=== PATIENT | male | born 1960 | race Caucasian/White ===

== ENCOUNTER 2020-05-16 05:40 | Day surgery (SDC) | payer BC ==
[2020-05-12 13:50] LABS: HEMATOCRIT 45.8 % (42.0-54.0); HEMOGLOBIN 14.8 g/dL (13.5-17.5); MCH 28.2 pg (26.0-34.0); MCHC 32.3 g/dL (31.0-37.0); MCV 87.4 fL (80.0-100.0); MEAN PLATELET VOLUME 9.4 fL (7.4-10.4); RBC 5.24 10x6/uL (4.20-6.10); RDW 13.3 % (11.5-14.5); WBC 6.8 10x3/uL (4.8-10.8)
[~2020-05-16] VITALS: Ht 175.3 cm; Wt 98.9 kg
[~2020-05-16 05:40] MED LIST: ATACAND PO; CILOSTAZOL100 MG PO; PLAVIX75 MG PO; XARELTO20 MG PO
[2020-05-16 06:11] VITALS: Ht 175.3 cm; Wt 98.9 kg
[2020-05-16] MEDS ORDERED: HYDROCODON-ACE1 EA10 PO (09:08)
--- NOTE | 2020-05-16 09:54 | NUR ---
0940 ASSISSTED UP TO BR VOIDS QS. CALLED TO INFORM PT. HAS RETURNED TO ROOM.
--- NOTE | 2020-05-17 12:51 | OP ---
PATIENT NAME: CONSTANTINE HUTSON MEDICAL RECORD: [id number] :64 LOCATION:[facility] ADMISSION DATE: SURGEON: GORDON AQUINO, TINA LOWE DATE OF OPERATION: 05/16/2020 PREOPERATIVE DIAGNOSES: Rotator cuff tear of the right shoulder with SLAP lesion and impingement syndrome, acromioclavicular arthritis. POSTOPERATIVE DIAGNOSES: Rotator cuff tear of the right shoulder with SLAP lesion and impingement syndrome, acromioclavicular arthritis. PROCEDURES: 1. Arthroscopic rotator cuff repair. 2. Arthroscopic SLAP repair, right shoulder. 3. Arthroscopic subacromial decompression, acromioplasty, and bursectomy. 4. Arthroscopic distal clavicle excision done through separate incision - 1 cm. SURGEON: Tina Leyva MD ANESTHESIA: General. INTRAOPERATIVE COMPLICATIONS: None. SUMMARY OF PATHOLOGIC FINDINGS: The patient had a far posterior supraspinatus - infraspinatus junctional tear. The patient also had substantial SLAP lesion. Biceps tendon was overall in good condition after the SLAP was repaired. The biceps tendon was left without tenodesing, rotator cuff was also repaired using Arthrex suture anchors. 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 OPERATIVE SUMMARY IN DETAIL: After obtaining the appropriate preoperative orthopedic surgery consent as well as anesthetic consultation, evaluation and regular, respiration of the operating room and placed in the operating table in supine position. After general laryngeal mask airway was administered, the patient was placed in a left lateral decubitus position. All pressures points were well padded to include down leg peroneal pad as well as axillary roll. The patient was held from the operating room table using the vacuum pack suction system. Right upper extremity and shoulder were prepped and draped in routine sterile fashion. The arm was held in the Arthrex traction device at 30 degrees of forward flexion, 30 degrees of abduction with 10 pounds of traction laterally. At this point, the appropriate timeout was taken and agreed upon by all given the unique patient identifiers. Arthroscopy was established in the glenohumeral joint from a posterior portal. Anterior portal was established in anterior safe interval. Diagnostic arthroscopy did show the patient to have the findings as noted above. Attention was first turned SLAP repair. Two labral anchors were placed in the anterior aspect just anterior to the bicipital labral junction. After preparing the anterior aspect of the glenoid for reapproximation with 2.9 suture anchors from Arthrex using a labral tape. Having completed this, attention was turned to the subacromial space. While in the subacromial space, Dodge tissue ablation system was utilized to denude the undersurface of the acromion of all soft tissue elements and release the coracoacromial ligament. Formal acromioplasty was then performed to the acromioclavicular joint and the acromioclavicular OPERATIVE REPORT [id number] HARESHCONSTANTINE joint was then identified and through separate anterior arthroscopic portal, distal clavicle was excised for 1 cm using the 5-0 barrel bur. Lastly, attention was turned to the rotator cuff. The rotator cuff tear and footprint were debrided of all nonviable-appearing tissue and the footprint was decorticated for reapproximation. A single inverted #2 FiberTape was utilized and anchored laterally with a 5.5 SwiveLock from Arthrex. Having completed this, arthroscopy portals were closed in routine interrupted fashion using 4-0 Prolene. Sterile dressings were applied. The patient was awakened, taken to the recovery room in stable condition. All final needle and sponge counts were correct. TRANSINT:[id number] Voice Confirmation ID: [id number] DOCUMENT ID: [id number] GORDON AQUINO, TNIA LOWE at 1251 CC: [id number] DICTATION DATE: 05/16/20912 GROUT WORKER: 05/16/201948 [facility] 05/16/20 [facility] [address] [place] [address]
== END 2020-05-16 11:00 | disposition home or self-care (01) ==
LOC: D.OPS 05:40 → D.PAN 07:30 → D.OPS 07:30
PROVIDERS: Anesthesiology; ATTEND Orthopaedic Surgery
DX: M75.101 Unspecified rotator cuff tear or rupture of right shoulder, not specified as traumatic (principal); S43.431A Superior glenoid labrum lesion of right shoulder, initial encounter; M75.41 Impingement syndrome of right shoulder; M19.011 Primary osteoarthritis, right shoulder; X58.XXXA Exposure to other specified factors, initial encounter; M25.511 Pain in right shoulder; M75.21 Bicipital tendinitis, right shoulder; I25.10 Atherosclerotic heart disease of native coronary artery without angina pectoris

== ENCOUNTER 2021-02-22 20:50 | Emergency (ER) | payer BC ==
[~2021-02-22] VITALS: Ht 175.3 cm; Wt 95.5 kg
[~2021-02-22 20:50] MED LIST changes: +HYDROCODON-ACE1 EA10 PO
[2021-02-22 20:57] VITALS: BP 153/101; Ht 175.3 cm; Wt 95.5 kg
[2021-02-22] MEDS ORDERED: HYDROCODONE-AC1 EAC2 PO (21:59)
[2021-02-22] MEDS ORDERED: CLEOCIN HCL300 MG PO (21:59)
== END 2021-02-22 22:16 | disposition home or self-care (01) ==
LOC: D.ER 20:50
DX: S68.111A Complete traumatic metacarpophalangeal amputation of left index finger, initial encounter (principal); D68.9 Coagulation defect, unspecified; W45.8XXA Other foreign body or object entering through skin, initial encounter; Y93.9 Activity, unspecified; Y92.9 Unspecified place or not applicable